=== PATIENT | female | born 1960 | race Two or more races ===

== ENCOUNTER 2025-05-16 17:46 | Emergency (ER) | payer OTHER ==
[~2025-05-16] VITALS: Ht 157.5 cm; Wt 63.5 kg
[2025-05-16 17:52] VITALS: BP 102/66; O2SAT 99
[2025-05-16 20:51] LABS: BASO % 0.4 % (0.1-1.2); EOS # 0.82 (0.04-0.54); EOS % 6.6 % (0.7-7.0); LYMPH # 5.87 (1.18-3.74); LYMPH % 47.2 % (19.3-53.1); MEAN PLATELET VOLUME 11.00 fl (9.4-12.4); MONO # 1.04 (0.24-0.82); MONO % 8.4 % (4.7-12.5); NEUT # 4.63 (1.56-6.13); NEUT % 37.2 % (34.0-71.1); RED CELL DISTRIBUTION WIDTH 12.7 % (11.6-14.4)
[2025-05-16 21:35] LABS: COVID-19 AG NEGATIVE (NEGATIVE)
[2025-05-16] MEDS ORDERED: CEFTRIAXONE SODIUM 1,000 MG VIAL IM STA (22:00)
== END 2025-05-16 22:13 | disposition home or self-care (01) ==
LOC: ER 20:38
PROVIDERS: General Practice
DX: J06.9 Acute upper respiratory infection, unspecified (principal); Z20.822 Contact with and (suspected) exposure to COVID-19; Z88.6 Allergy status to analgesic agent; Z88.8 Allergy status to other drugs, medicaments and biological substances

== ENCOUNTER 2025-09-26 23:07 | Inpatient (IN) | payer OTHER ==
[~2025-09-26] VITALS: Ht 154.9 cm; Wt 63.5 kg
[2025-09-27] MEDS ORDERED: PLAQUENIL (01:06)
--- NOTE | 2025-09-27 01:24 | NUR ---
SE RECIBE PACIENTE ALERTA Y ORIENTADA X3. PACIENTE REFIERE DOLOR PELVICO DEL LADO DERECHO.
[2025-09-27] MEDS ORDERED: PROMETHAZINE HCL 50 MG/ML AMPUL IM STA (02:44)
[2025-09-27] MEDS ORDERED: 0.9 % SODIUM CHLORIDE 1,000 ML IV ONE (02:45)
[2025-09-27] MEDS ORDERED: PROMETHAZINE HCL 50 MG/ML AMPUL IM ONE (03:03)
--- NOTE | 2025-09-27 03:48 | NUR ---
SE ORIENTA PACIENTE ACERCA DE TRATAMIENTO. PACIENTE REFIERE ENTENDER Y ACEPTAR. SE COLECTAN MUESTRAS DE LABORATORIO BAJO MEDIDAS ASEPTICAS Y SE GABRIELA ENVASE PARA U/A CON INSTRUCCIONES. SE ADMINISTRAN MEDICAMENTOS NATHAN PRESCRITOS. SE NOTIFICA ESTUDIO PENDIENTE.
[2025-09-27 04:28] LABS: BASO % 0.3 % (0.1-1.2); EOS # 0.80 (0.04-0.54); EOS % 7.3 % (0.7-7.0); LYMPH # 2.44 (1.18-3.74); LYMPH % 22.3 % (19.3-53.1); MEAN PLATELET VOLUME 11.50 fl (9.4-12.4); MONO # 0.73 (0.24-0.82); MONO % 6.7 % (4.7-12.5); NEUT # 6.93 (1.56-6.13); NEUT % 63.2 % (34.0-71.1); RED CELL DISTRIBUTION WIDTH 12.6 % (11.6-14.4)
[2025-09-27 04:41] LABS: ALT/SGPT 28.0 U/L (12-78); AST/SGOT 17.0 U/L (15-37); BILIRUBIN TOTAL 0.76 mg/dL (0.3-1.2); BUN CREA RATIO 21.0 (7.0-25.0); CREATININE SERUM 0.76 mg/dL (0.55-1.02); GFR 76.62; GLOBULINA 4.2 G/DL (2.4-3.5); GLUCOSE FASTING 94.0 mg/dL (65-100); OSMOLALITY SERUM 286.0 MOSM/KG (275-295)
[2025-09-27 04:47] LABS: INR 0.96
[2025-09-27] MEDS ORDERED: PIPERACILLIN/TAZOBACTAM SODIUM 3.375 GM VIAL IV STA (04:48)
[2025-09-27] MEDS ORDERED: METHYLPREDNISOLONE SOD SUCC 125 MG VIAL ONE (04:59)
[2025-09-27] MEDS ORDERED: DIPHENHYDRAMINE HCL 50 MG/ML VIAL 1ML ONE (04:59)
[2025-09-27] MEDS ORDERED: DIPHENHYDRAMINE HCL 50 MG/ML VIAL 1ML IV STA (05:00)
[2025-09-27] MEDS ORDERED: METHYLPREDNISOLONE SOD SUCC 125 MG VIAL IV STA (05:00)
[2025-09-27] MEDS ORDERED: PIPERACILLIN/TAZOBACTAM SODIUM 3.375 GM VIAL IV ONE ×2 (05:13→16:36)
[2025-09-27 06:59] LABS: URINE APPEARANCE Clear; URINE BILIRRUBIN Negative (NEGATIVE); URINE BLOOD Negative; URINE COLOR Yellow; URINE GLUCOSE Negative (NEGATIVE); URINE KETONE Negative (NEGATIVE); URINE LEUKOCYTE Small; URINE NITRATE Negative; URINE PROTEIN Negative (NEGATIVE); URINE UROBILINOGEN 0.2 E.U./dl
[2025-09-27 07:00] LABS: URINE BACTERIA 20.5 uL (0.0-1933); URINE EPITHELIAL CELLS 5.0 uL (0.0-38.8); URINE WBC 19.4 uL (0.0-23.2)
[2025-09-27 07:04] LABS: URINE CAST 0.42 uL (0.0-1.40); URINE RBC 1.2 uL (0.0-20.8)
[2025-09-27] MEDS ORDERED: CIPROFLOXACIN IN 5 % DEXTROSE 400 MG/200 ML PIGGYBAG IV ONE (08:22)
[2025-09-27] MEDS ORDERED: METRONIDAZOLE/SODIUM CHLORIDE 500 MG/100 ML PIGGYBACK IV ONE (08:22)
[2025-09-27] MEDS ORDERED: METRONIDAZOLE/SODIUM CHLORIDE 500 MG/100 ML PIGGYBACK IV STA (08:22)
[2025-09-27] MEDS ORDERED: CIPROFLOXACIN IN 5 % DEXTROSE 400 MG/200 ML PIGGYBAG IV STA (08:22)
[2025-09-27] MEDS ORDERED: MORPHINE SULFATE 4 MG/ML VIAL IV STA (08:23)
[2025-09-27] MEDS ORDERED: 0.9 % SODIUM CHLORIDE 1,000 ML IV SCH (16:00)
[2025-09-27 17:06] VITALS: BP 100/64; O2SAT 97
[2025-09-27 17:32] LABS: ALT/SGPT 29.0 U/L (12-78); AST/SGOT 20.0 U/L (15-37); BILIRUBIN TOTAL 0.69 mg/dL (0.3-1.2); BILIRUBIN,CONJUGATED 0.3 mg/dL (0.0-0.2)
[2025-09-27] MEDS ORDERED: PIPERACILLIN/TAZOBACTAM SODIUM 3.375 GM in DEXTROSE 5 % IN WATER 100 ML IV SCH (18:00)
[2025-09-27] MEDS ORDERED: MORPHINE SULFATE 4 MG/ML VIAL IV SCH (18:00)
[2025-09-27] MEDS ORDERED: FAMOTIDINE/PF 20 MG/2 ML VIAL IV SCH (21:00)
[2025-09-28 03:03] VITALS: BP 100/60; O2SAT 96
[2025-09-28 06:21] LABS: BASO % 0.2 % (0.1-1.2); EOS # 0.02 (0.04-0.54); EOS % 0.2 % (0.7-7.0); LYMPH # 2.23 (1.18-3.74); LYMPH % 17.3 % (19.3-53.1); MEAN PLATELET VOLUME 11.30 fl (9.4-12.4); MONO # 0.91 (0.24-0.82); MONO % 7.1 % (4.7-12.5); NEUT # 9.67 (1.56-6.13); NEUT % 74.9 % (34.0-71.1); RED CELL DISTRIBUTION WIDTH 12.3 % (11.6-14.4)
[2025-09-28 07:07] LABS: ALT/SGPT 23.0 U/L (12-78); AST/SGOT 18.0 U/L (15-37); BILIRUBIN TOTAL 1.07 mg/dL (0.3-1.2); BUN CREA RATIO 19.0 (7.0-25.0); CREATININE SERUM 0.74 mg/dL (0.55-1.02); GFR 79.01; GLOBULINA 3.5 G/DL (2.4-3.5); GLUCOSE FASTING 78.0 mg/dL (65-100); OSMOLALITY SERUM 286.0 MOSM/KG (275-295)
[2025-09-28 10:13] VITALS: BP 93/55; O2SAT 99
[2025-09-28 15:28] LABS: BUN CREA RATIO 20.0 (7.0-25.0); CHOL HDL RATIO 2.1 (0-5.0); CREATININE SERUM 0.83 mg/dL (0.55-1.02); GFR 69.21; GLUCOSE FASTING 64.0 mg/dL (65-100); HDL 82.0 mg/dl (40-60); LDL 86.0 mg/dl (0-130); OSMOLALITY SERUM 286.0 MOSM/KG (275-295); VLDL 8.0 (0-39)
[2025-09-28] MEDS ORDERED: AA 2.36%/D6.8W/FAT/E-LYTES NO9 1,440 ML IV SCH (17:00)
[2025-09-28 21:28] VITALS: BP 111/80
[2025-09-29 01:01] VITALS: BP 99/66; O2SAT 95
[2025-09-29 10:22] VITALS: BP 97/62; O2SAT 97
[2025-09-29 17:45] VITALS: BP 115/73; O2SAT 97
[2025-09-30 02:28] VITALS: BP 100/68; O2SAT 96
[2025-09-30 07:50] LABS: BASO % 0.4 % (0.1-1.2); EOS # 0.92 (0.04-0.54); EOS % 11.2 % (0.7-7.0); LYMPH # 2.61 (1.18-3.74); LYMPH % 31.6 % (19.3-53.1); MEAN PLATELET VOLUME 10.80 fl (9.4-12.4); MONO # 0.57 (0.24-0.82); MONO % 6.9 % (4.7-12.5); NEUT # 4.10 (1.56-6.13); NEUT % 49.7 % (34.0-71.1); RED CELL DISTRIBUTION WIDTH 12.4 % (11.6-14.4)
[2025-09-30 08:16] LABS: ALT/SGPT 18.0 U/L (12-78); AST/SGOT 12.0 U/L (15-37); BILIRUBIN TOTAL 0.81 mg/dL (0.3-1.2); BUN CREA RATIO 11.0 (7.0-25.0); CREATININE SERUM 0.7 mg/dL (0.55-1.02); GFR 84.24; GLOBULINA 3.6 G/DL (2.4-3.5); GLUCOSE FASTING 107.0 mg/dL (65-100); OSMOLALITY SERUM 289.0 MOSM/KG (275-295)
[2025-09-30 10:03] VITALS: BP 95/69; O2SAT 99
[2025-09-30] MEDS ORDERED: SODIUM CHLORIDE 0.45 % 1,000 ML IV SCH (10:30)
[2025-09-30] MEDS ORDERED: DIATRIZOATE MEGLUMINE, SODIUM 30 ML BOTTLE PO NR (13:00)
[2025-09-30 18:20] VITALS: BP 120/77; O2SAT 96
[2025-10-01 01:07] VITALS: BP 107/73; O2SAT 95
[2025-10-01 06:16] LABS: BASO % 0.4 % (0.1-1.2); EOS # 0.89 (0.04-0.54); EOS % 12.8 % (0.7-7.0); LYMPH # 2.34 (1.18-3.74); LYMPH % 33.5 % (19.3-53.1); MEAN PLATELET VOLUME 11.30 fl (9.4-12.4); MONO # 0.56 (0.24-0.82); MONO % 8.0 % (4.7-12.5); NEUT # 3.15 (1.56-6.13); NEUT % 45.2 % (34.0-71.1); RED CELL DISTRIBUTION WIDTH 12.2 % (11.6-14.4)
[2025-10-01 06:32] LABS: INR 1.01
[2025-10-01 07:16] LABS: ALT/SGPT 19.0 U/L (12-78); AST/SGOT 17.0 U/L (15-37); BILIRUBIN TOTAL 1.16 mg/dL (0.3-1.2); BILIRUBIN,CONJUGATED 0.26 mg/dL (0.0-0.2); BUN CREA RATIO 11.0 (7.0-25.0); CHOL HDL RATIO 2.9 (0-5.0); CREATININE SERUM 0.74 mg/dL (0.55-1.02); GFR 79.01; GLOBULINA 3.7 G/DL (2.4-3.5); GLUCOSE FASTING 92.0 mg/dL (65-100); HDL 57.0 mg/dl (40-60); LDL 96.0 mg/dl (0-130); OSMOLALITY SERUM 283.0 MOSM/KG (275-295); VLDL 11.0 (0-39)
[2025-10-01 08:19] VITALS: BP 110/70; BP 88/65; O2SAT 97
[2025-10-01 08:20] LABS: UREA CLEARANCE 33.3 ML/MIN
[2025-10-01] MEDS ORDERED: LACTOBACILLUS ACIDOPHILUS 1 CAP CAP PO SCH (17:00)
[2025-10-01] MEDS ORDERED: AA 5 %/CALCIUM/LYTES/DEXT 20 % 2,000 ML CENTRAL SCH (17:00)
[2025-10-01] MEDS ORDERED: FAT EMULSIONS 250 ML IV SCH (21:00)
[2025-10-01 21:28] VITALS: BP 159/79
[2025-10-02 00:49] VITALS: BP 105/66; O2SAT 97
[2025-10-02 10:37] VITALS: BP 103/69; O2SAT 98
[2025-10-02] MEDS ORDERED: PIPERACILLIN/TAZOBACTAM SODIUM 3.375 GM VIAL IV ONE (16:39)
[2025-10-02 19:04] VITALS: BP 102/59
[2025-10-02] MEDS ORDERED: INTESTINEX680 M1 PO (20:14)
[2025-10-02] MEDS ORDERED: AMOX1TAB5 PO (20:14)
[2025-10-03 01:45] VITALS: BP 105/70; O2SAT 96
[2025-10-03 09:01] VITALS: BP 100/67; O2SAT 96
== END 2025-10-03 11:34 | disposition home or self-care (01) | DRG 392 ==
LOC: ER 23:07 → SEC-K 09-27 16:07 → MEDJ 09-27 16:07
PROVIDERS: General Practice; Internal Medicine Infectious Disease; ADMIT Internal Medicine; ATTEND Internal Medicine
PROC: BW21YZZ Computerized Tomography (CT Scan) of Abdomen and Pelvis using Other Contrast (ICD-10-PCS; principal; 2025-09-27)
PROC: 02HV33Z Insertion of Infusion Device into Superior Vena Cava, Percutaneous Approach (ICD-10-PCS; 2025-09-28)
PROC: BW21YZZ Computerized Tomography (CT Scan) of Abdomen and Pelvis using Other Contrast (ICD-10-PCS; 2025-09-30)
DX: K57.80 Diverticulitis of intestine, part unspecified, with perforation and abscess without bleeding (principal); K52.9 Noninfective gastroenteritis and colitis, unspecified